=== PATIENT | male | born 1960 | race Caucasian/White ===

== ENCOUNTER 2022-10-16 09:54 | Emergency (ER) | payer OTHER, BC ==
[2022-10-16] MEDS ORDERED: ALPRAZolam 0.25 MG Tab PO ONE (11:02)
== END 2022-10-16 11:42 | disposition home or self-care (01) ==
LOC: VM.ED 09:54
DX: R07.81 Pleurodynia (principal); I10 Essential (primary) hypertension; Z88.1 Allergy status to other antibiotic agents; Z88.0 Allergy status to penicillin; Z88.2 Allergy status to sulfonamides
CPT/HCPCS: 71101-RT; 99283; 99284; A9270-GY